=== PATIENT | male | born 1975 | race Caucasian/White ===

== ENCOUNTER 2016-09-10 09:13 | Emergency (ER) | payer SELFPAY ==
[~2016-09-10] VITALS: Ht 175.3 cm; Wt 74.8 kg
[~2016-09-10 09:13] MED LIST: ALBUTEROL17 GM INH; AMOXICILLIN500 M1 PO; ASPIRIN81 MG PO; DENTAL BALLS; DOXYCYCLINE HY100 M3 PO; ERYTHROMYCIN O3.5 GM; IBUPROFEN800 MG PO; LISINOPRIL-HCTZ1 T14 PO; LORTAB 7.51 TAB 7.5/ PO; NO MEDICATIONS; TYLENOL #3 PO; [UNRECOGNIZED DRUG - OTHER] OS
== END 2016-09-10 11:22 | disposition home or self-care (01) ==
LOC: SED 09:13
DX: L03.116 Cellulitis of left lower limb (principal); L02.416 Cutaneous abscess of left lower limb; F17.210 Nicotine dependence, cigarettes, uncomplicated
CPT/HCPCS: 10060; 99283